=== PATIENT | male | born 1940 | race Caucasian/White ===

== ENCOUNTER → 2016-05-24 08:44 | Outpatient (CLI) | payer MEDICARE ==
[2014-11-01 05:18] VITALS: BMI 27.3
[~2016-05-24 08:44] MED LIST: COZAAR100 MG PO
== END | disposition home or self-care (01) ==
LOC: D.US 08:44
DX: R10.13 Epigastric pain (principal)

== ENCOUNTER → 2016-05-28 08:21 | Outpatient (CLI) | payer MEDICARE ==
[2014-11-01 05:18] VITALS: BMI 27.3
== END | disposition home or self-care (01) ==
LOC: D.CT 08:21
DX: N13.30 Unspecified hydronephrosis (principal)

== ENCOUNTER → 2016-06-02 09:37 | Outpatient (CLI) | payer MEDICARE ==
[2014-11-01 05:18] VITALS: BMI 27.3
== END | disposition home or self-care (01) ==
LOC: D.NM 09:30
DX: R93.2 Abnormal findings on diagnostic imaging of liver and biliary tract (principal); K82.4 Cholesterolosis of gallbladder; R10.13 Epigastric pain